=== PATIENT | female | born 1970 | race Two or more races ===

== ENCOUNTER 2022-12-19 12:02 | Emergency (ER) | payer OTHER ==
[~2022-12-19] VITALS: Ht 165.1 cm; Wt 12.7 kg
[2022-12-19 13:12] VITALS: BP 119/64; PULSE 94; RESP 24; TEMP 98.6; O2SAT 97
[2022-12-19] MEDS ORDERED: HYDROcodone-ACET 10/325MG TAB PO ONE (15:15)
[2022-12-19] MEDS ORDERED: CEPH250C PO (16:33)
[2022-12-19] MEDS ORDERED: ACET500T58 PO (16:33)
[2022-12-19] MEDS ORDERED: BACIOIN15 TOP (16:33)
[2022-12-19] MEDS ORDERED: IBUP-1455 PO (16:33)
== END 2022-12-19 16:39 | disposition home or self-care (01) ==
LOC: ER 12:02
DX: S93.504A Unspecified sprain of right lesser toe(s), initial encounter (principal); S90.31XA Contusion of right foot, initial encounter; E66.01 Morbid (severe) obesity due to excess calories; Z68.1 Body mass index [BMI] 19.9 or less, adult; W18.09XA Striking against other object with subsequent fall, initial encounter; Y93.01 Activity, walking, marching and hiking; Y92.89 Other specified places as the place of occurrence of the external cause; Y99.8 Other external cause status
CPT/HCPCS: 73630